=== PATIENT | female | born 1980 | race African-American/Black ===

== ENCOUNTER 2017-03-10 11:05 | Emergency (ER) | payer OTHER ==
[~2017-03-10] VITALS: Ht 162.6 cm; Wt 66.0 kg
[2017-03-10 11:07] VITALS: BP 111/57; PULSE 84; RESP 18; TEMP 98.6; O2SAT 100
--- NOTE | 2017-03-10 11:33 | PD ---
HPI Chief Complaint: Abdominal Pain Time Seen by Provider: 11:32 Travel History International Travel<30 days: No Contact w/Intl Traveler<30days: No Traveled to known affect area: No History of Present Illness HPI 36-year-old female presents to the emergency Department with complaint of a palpable lump in left upper quadrant of her abdomen that she noticed this morning. She says the lump is painful when she presses on it. Reports diarrhea yesterday; denies today. Denies nausea, vomiting. Denies fever. Reports urinary urgency, frequency. Denies dysuria. Has not taken any medications or tried any treatments to alleviate her symptoms. History of gastric bypass surgery 3 years ago. Currently on menses. No known allergies. Has no other medical complaints. No other modifying factors or associated signs and symptoms. PFSH Past Medical History Anemia: Yes Asthma: Yes Diminished Hearing: No Medical other: Yes (OBESITY ) Immunizations Current: No Tetanus Vaccination: Unknown Influenza Vaccination: No ?: Not LMP: now : 7 Para: 3 Miscarriage: 4 : 1 Past Surgical History Abdominal Surgery: Yes (GASTRIC BYPASS 2013 ) Cholecystectomy: Yes Tonsillectomy: Yes Other Surgery: Yes (R FOOT SURGERY ) Social History Alcohol Use: No Tobacco Use: No Substance Use: No Allergies-Medications (Allergen,Severity, Reaction): Coded Allergies: No Known Allergies (Unverified , 03/10/17) Reported Meds & Prescriptions Reported Meds & Active Scripts Active No Active Prescriptions or Reported Medications Review of Systems Except as stated in HPI: all other systems reviewed are Neg Physical Exam Narrative GENERAL: Well-nourished, well-developed patient, in no acute distress SKIN: Warm and dry. HEAD: Atraumatic. Normocephalic. EYES: Pupils equal and round. No scleral icterus. No injection or drainage. ENT: Mucosa pink and moist. Airway patent. NECK: Trachea midline. CARDIOVASCULAR: Regular rate and rhythm. No murmur appreciated. RESPIRATORY: No accessory muscle use. Clear to auscultation. Breath sounds equal bilaterally. GASTROINTESTINAL: Abdomen soft, nondistended; small palpable, firm, palpable lump to the left upper quadrant and is tender to palpation. Hepatic and splenic margins not palpable. Bowel sounds are active 4 quadrants. MUSCULOSKELETAL: No obvious deformities. No clubbing. No cyanosis. No edema. NEUROLOGICAL: Awake and alert. Oriented 3. No obvious cranial nerve deficits. Motor grossly within normal limits. Normal speech. PSYCHIATRIC: Appropriate mood and affect; insight and judgment normal. Data Data Last Documented VS Vital Signs Date Time Temp Pulse Resp B/P Pulse Ox O2 Delivery O2 Flow Rate FiO2 03/10/17 11:07 98.6 84 18 111/57 100 Room Air Orders Urinalysis - C+S If Indicated (03/10/17 11:35) Labs Laboratory Tests Test 03/10/17 11:40 Urine Color YELLOW Urine Turbidity CLEAR Urine pH 6.0 Urine Specific [place] 1.022 Urine Protein NEG mg/dL Urine Glucose (UA) NEG mg/dL Urine Ketones NEG mg/dL Urine Occult Blood MOD Urine Nitrite NEG Urine Bilirubin NEG Urine Urobilinogen LESS THAN 2.0 MG/DL Urine Leukocyte Esterase NEG Urine RBC 36 /hpf Urine WBC 4 /hpf Urine Squamous Epithelial 1 /hpf Cells Urine Bacteria OCC /hpf Microscopic Urinalysis Comment CULT NOT INDICATED MDM Medical Decision Making Medical Screen Exam Complete: Yes Emergency Medical Condition: Yes Medical Record Reviewed: Yes Differential Diagnosis Adhesion, abdominal abscess, Narrative Course 36-year-old female with a small, palpable, firm lump to the left upper quadrant abdominal area. Patient is afebrile and nontoxic-appearing. She denies fever, vomiting. I discussed the patient with Dr. Bentley, my attending physician, and she evaluated the patient and recommended the patient for outpatient follow-up. The patient was complaining of urinary urgency and frequency. She is currently on her menses. Urinalysis showed no signs of infection. Instructed patient to follow up with primary care provider. Patient verbalizes understanding and agreement with treatment plan. Patient is medically cleared and stable for discharge. Discussed reasons to return to the emergency department. Patient agrees with treatment plan. The patients vital signs are stable and the patient is stable for outpatient follow-up and treatment. Patient discharged home, stable and in no acute distress. Diagnosis Primary Impression: Abdominal lump Qualified Code: R19.02 - Left upper quadrant abdominal mass Referrals: Primary Care Physician Patient Instructions: General Instructions Additional Instructions: Follow-up with primary care provider Return to the emergency department immediately with worsening of symptoms Scripts No Active Prescriptions or Reported Meds Disposition: 01 DISCHARGE HOME Condition: Stable Sally Trimble Mar 10, 2017 11:33
[2017-03-10 12:07] LABS: BACTERIA, URINE OCC /hpf; BLOOD, URINE MOD (NEG); COMMENT (UR) CULT NOT INDICATED; CULTURE IF INDICATED CULT NOT INDICATED; GLUCOSE,URINE NEG (NEG); KETONE, URINE NEG (NEG); NITRITE,URINE NEG (NEG); SQUAMOUS EPITHELIAL CELL URINE 1 /hpf (0-5); URINE COLOR YELLOW (YELLW/STRAW)
== END 2017-03-10 12:37 | disposition home or self-care (01) ==
LOC: NEPD 11:05
DX: R19.02 Left upper quadrant abdominal swelling, mass and lump (principal); Z98.84 Bariatric surgery status
CPT/HCPCS: 81001; 99283

== ENCOUNTER 2017-11-05 15:01 | Emergency (ER) | payer OTHER ==
[~2017-11-05] VITALS: Ht 162.6 cm; Wt 72.1 kg
[2017-11-05 15:06] VITALS: BP 107/54; PULSE 75; RESP 16; TEMP 98.4; O2SAT 99
[2017-11-05] MEDS ORDERED: HYDR1CRE TOPICAL (15:30)
--- NOTE | 2017-11-05 15:31 | PD ---
HPI Chief Complaint: Skin Problem Time Seen by Provider: 15:16 Travel History International Travel<30 days: No Contact w/Intl Traveler<30days: No Traveled to known affect area: No History of Present Illness HPI 37-year-old female here for evaluation of insect bite to the right lower extremity. 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 Unsure of the type of insect. The area is now red, swollen and pruritic. No fever or chills. She reports she has had similar localized reactions to other insect bites. No aggravating or alleviating factors PFSH Past Medical History Anemia: Yes Asthma: Yes Diminished Hearing: No Respiratory: Yes (asthma) Immunizations Current: No ?: Not LMP: 11/01/17 : 7 Para: 3 Miscarriage: 4 : 1 Past Surgical History Abdominal Surgery: Yes (GASTRIC BYPASS 2013 ) Cholecystectomy: Yes Tonsillectomy: Yes Other Surgery: Yes (R FOOT SURGERY ) Social History Alcohol Use: No Tobacco Use: No Substance Use: No Allergies-Medications (Allergen,Severity, Reaction): Coded Allergies: No Known Allergies (Unverified Adverse Reaction, Unknown, 11/05/17) Reported Meds & Prescriptions Reported Meds & Active Scripts Active No Active Prescriptions or Reported Medications Review of Systems Except as stated in HPI: all other systems reviewed are Neg General / Constitutional: No: Fever Physical Exam Narrative GENERAL: Well-appearing 37-year-old female. SKIN: Warm and dry. 2 areas of erythema to the right lower extremity lateral aspect. These areas are consistent with a localized inflammation of an insect bite. No induration. No surrounding cellulitis. No lymphangitis. HEAD: Normocephalic. EYES: No injection or drainage. NECK: Supple MUSCULOSKELETAL: No cyanosis, or edema. Data Data Last Documented VS Vital Signs Date Time Temp Pulse Resp B/P (MAP) Pulse Ox O2 Delivery O2 Flow Rate FiO2 11/05/17 15:06 98.4 75 16 107/54 (71) 99 MDM Medical Decision Making Medical Screen Exam Complete: Yes Emergency Medical Condition: Yes Differential Diagnosis Insect bite, abscess, cellulitis Narrative Course This is a 37-year-old female here with 2 insect bites to the right lower extremity since this morning. No evidence. This appears to be localized inflammation from an insect bite. She was instructed to take OTC Benadryl. OTC hydrocortisone cream. Cool compresses to the area. Diagnosis Primary Impression: Insect bite Qualified Codes: W57.XXXA - Bitten or stung by nonvenomous insect and other nonvenomous arthropods, initial encounter Referrals: Primary Care Physician Additional Instructions: [id number] Benadryl 25 mg every 6 hours as needed for itching. Cool compresses to the area. Hydrocortisone cream to the area. Scripts Hydrocortisone Topical (Hydrocortisone Topical) 1% Cream 1 APPLIC TOPICAL BID for Rash/Inflammation for 5 Days, GM 0 Refills Prov: Veronica Mckeon 11/05/17 Disposition: 01 DISCHARGE HOME Condition: Stable Veronica Mckeon Nov 05, 2017 15:30
[2017-11-05] MEDS ORDERED: diphenhydrAMINE HCL 50 MG CAP PO ONE (15:45)
== END 2017-11-05 15:59 | disposition home or self-care (01) ==
LOC: PHEFT 15:01
DX: S80.861A Insect bite (nonvenomous), right lower leg, initial encounter (principal); J45.909 Unspecified asthma, uncomplicated; W57.XXXA Bitten or stung by nonvenomous insect and other nonvenomous arthropods, initial encounter; Y92.811 Bus as the place of occurrence of the external cause
CPT/HCPCS: 99283; Q0163

== ENCOUNTER 2017-11-07 21:56 | Emergency (ER) | payer OTHER ==
[~2017-11-07] VITALS: Ht 162.6 cm; Wt 72.4 kg
[~2017-11-07 21:56] MED LIST: HYDR1CRE TOPICAL
[2017-11-07 22:19] VITALS: BP 110/56; PULSE 77; RESP 18; TEMP 98.2; O2SAT 99
[2017-11-07] MEDS ORDERED: SODIUM CHLOR 0.9% 1000 ML INJ 1,000 ML IV ONE (23:45)
[2017-11-07] MEDS ORDERED: KETOROLAC TROMETHAMINE 30 MG/ML (IVP) VIAL IV PUSH ONE (23:45)
[2017-11-07] MEDS ORDERED: CLINDAMYCIN 900 MG/NS PREMIX 50 ML IV ONE (23:45)
[2017-11-07] MEDS ORDERED: DOXY100C PO (23:57)
[2017-11-07] MEDS ORDERED: BACT400T PO (23:57)
[2017-11-07] MEDS ORDERED: PRED10 PO (23:57)
--- NOTE | 2017-11-08 00:23 | PD ---
HPI . Skin problem Chief Complaint: Skin Problem Time Seen by Provider: 22:55 Travel History International Travel<30 days: No Contact w/Intl Traveler<30days: No Traveled to known affect area: No History of Present Illness HPI Patient presents earlier today status post probable insect bite to right lower extremity sustained while at work, patient noted itching, pain and tenderness and swelling shortly after insect bite. Patient was seen here was treated with antibiotics and steroids. Patient now presents with worsening interval of pain tenderness and swelling and notes bruising on her right ankle difficulty ambulating secondary to severe. Patient denies any isiah injury to the ankle had no twisting injury. Patient denies any fever chills sweats. Denies any shortness of breath. No recent confining travel or sedentary period. [facility] Past Medical History Narrative Medical Past medical history reviewed Anemia: Yes Asthma: Yes Diminished Hearing: No Respiratory: Yes (asthma) Immunizations Current: No Tetanus Vaccination: < 5 Years ?: Not : 7 Para: 3 Miscarriage: 4 : 1 Past Surgical History Abdominal Surgery: Yes (GASTRIC BYPASS 2013 ) Cholecystectomy: Yes Tonsillectomy: Yes Other Surgery: Yes (R FOOT SURGERY ) Social History Alcohol Use: No Tobacco Use: No Substance Use: No Allergies-Medications (Allergen,Severity, Reaction): Coded Allergies: No Known Allergies (Unverified Adverse Reaction, Unknown, 11/05/17) Reported Meds & Prescriptions Reported Meds & Active Scripts Active Hydrocortisone Topical 1% Cream 1 Applic TOPICAL BID 5 Days Reported Bactrim (Sulfamethoxazole-Trimethoprim) 400-80 Mg Tab 1 Tab PO DAILY Doxycycline Hyclate 100 Mg Cap 100 Mg PO BID Prednisone 10 Mg Tab 10 Mg PO DAILY Narrative Medication Allergies medications reviewed Review of Systems Except as stated in HPI: all other systems reviewed are Neg General / Constitutional: No: Fever Eyes: No: Visual changes HENT: No: Headaches Cardiovascular: No: Chest Pain or Discomfort Respiratory: No: Shortness of Breath Gastrointestinal: No: Abdominal Pain Genitourinary: No: Dysuria Musculoskeletal: Positive: Edema, Pain, No: Myalgias, Arthralgias, Limited ROM , Weakness, Cramping Skin: Positive Rash Neurologic: No: Weakness Psychiatric: No: Depression Endocrine: No: Polydipsia Hematologic/Lymphatic: No: Easy Bruising Physical Exam Narrative GENERAL: Awake alert oriented 3 in no acute distress. Afebrile vital signs normal and stable SKIN: Warm and dry. Color is normal diaphoresis on his pallor HEAD: Atraumatic. Normocephalic. EYES: Pupils equal and round. No scleral icterus. No injection or drainage. ENT: No nasal bleeding or discharge. Mucous membranes pink and moist. NECK: Trachea midline. No JVD. CARDIOVASCULAR: Regular rate and rhythm. RESPIRATORY: No accessory muscle use. Clear to auscultation. Breath sounds equal bilaterally. GASTROINTESTINAL: Abdomen soft, non-tender, nondistended. Hepatic and splenic margins not palpable. MUSCULOSKELETAL: Right lower extremity edematous tender ankle with early ecchymosis. Some areas of erythema and rash consistent with patient's history of possible insect bite. Otherwise neurovascular intact. No bony marking abnormalities. Full range of motion neurovascular intact NEUROLOGICAL: Awake and alert. No obvious cranial nerve deficits. Motor grossly within normal limits. Five out of 5 muscle strength in the arms and legs. Normal speech. PSYCHIATRIC: Appropriate mood and affect; insight and judgment normal. Data Data Last Documented VS Vital Signs Date Time Temp Pulse Resp B/P (MAP) Pulse Ox O2 Delivery O2 Flow Rate FiO2 11/07/17 22:19 98.2 77 18 110/56 (74) 99 Orders Orders Iv Access Insert/Monitor (11/07/17 23:34) Clindamycin 900 Mg/Ns Premix (Cleocin 90 (11/07/17 23:45) Ketorolac Inj (Toradol Inj) (11/07/17 23:45) Sodium Chlor 0.9% 1000 Ml Inj (Ns 1000 M (11/07/17 23:45) MDM Medical Decision Making Medical Screen Exam Complete: Yes Emergency Medical Condition: Yes Medical Record Reviewed: Yes Differential Diagnosis Cellulitis, infection Narrative Course Patient noted interval improvement with IV antibiotics, Toradol IV. Diagnosis Primary Impression: Cellulitis and abscess of right leg Patient Instructions: Cellulitis (ED), General Instructions, Insect Bite or Sting (ED) Additional Instructions: Continue medications as prescribed. Follow-up with your physician. Rest, elevate, warm soaks. Return promptly for worsening Disposition: 01 DISCHARGE HOME Condition: Stable Sanju Colbert MD Nov 08, 2017 00:23
[2017-11-08 00:53] VITALS: BP 128/78
== END 2017-11-08 00:56 | disposition home or self-care (01) ==
LOC: PHED 21:56
DX: L03.115 Cellulitis of right lower limb (principal); L02.415 Cutaneous abscess of right lower limb; J45.909 Unspecified asthma, uncomplicated
CPT/HCPCS: 96374; 96375; 99284; J1885; J7030